=== PATIENT | female | born 1945 | race Caucasian/White ===

== ENCOUNTER 2016-07-02 10:42 | Emergency (ER) | payer MEDICARE ==
[2016-07-02 10:50] VITALS: BP 147/78
--- NOTE | 2016-07-02 11:16 | UC ---
Respiratory Complaint HPI - HPI Summary HPI Summary: ST starting 2 days ago, lots of dry coughing last night and today. Feels hoarse. Pt has COPD and gets "bronchitis every year that turns into pneumonia." - History of Current Complaint Chief Complaint: UCRespiratory Stated Complaint: RESPIRATORY Time Seen by Provider: 07/02/16 10:57 Hx Obtained From: Patient Hx Last Menstrual Period: n/a ?: No Onset/Duration: Gradual Onset, Lasting Days Timing: Constant Severity Initially: Mild Severity Currently: Mild Character: Cough: Nonproductive Aggravating Factors: Exertion, Deep Breaths, Recumbent Position Alleviating Factors: Upright Position Associated Signs And Symptoms: Positive: Chills - 2d ago. Negative: Wheezing, Hemoptysis, Dizziness, URI, Nasal Congestion - Allergies/Home Medications Allergies/Adverse Reactions: Allergies Allergy/AdvReac Type Severity Reaction Status Date / Time Lansoprazole [From Prevacid] Allergy Intermediate Hives Verified 07/02/16 10:50 Home Medications: Home Medications Apixaban* [Eliquis*] 1 tab PO DAILY 07/02/16 [History Confirmed 07/02/16] Atorvastatin* [Lipitor 40 MG*] 1 tab PO DAILY 07/02/16 [History Confirmed ] Sacubitril-Valsartan [Entresto 24-26 mg] 1 tab PO BID 07/02/16 [History Confirmed 07/02/16] amLODIPine TAB* [Norvasc 5 mg TAB*] 5 mg PO DAILY 07/02/16 [History Confirmed ] PMH/Surg Hx/FS Hx/Imm Hx Cardiovascular History Of: Reports: Hypertension Respiratory History Of: Reports: COPD Psychological History Of: Reports: Anxiety - Surgical History Surgical History: Yes Surgery Procedure, Year, and Place: D&C - Family History Known Family History: Positive: Hypertension - Social History Occupation: Retired Alcohol Use: None Substance Use Type: None Smoking Status (MU): Former Smoker Type: Cigarettes When Did the Patient Quit Smoking/Using Tobacco: 2004 Review of Systems Constitutional: Negative Skin: Negative Eyes: Negative ENT: Negative Respiratory: Shortness Of Breath, Cough Cardiovascular: Negative Gastrointestinal: Negative Genitourinary: Negative Motor: Negative Neurovascular: Negative Musculoskeletal: Negative Neurological: Negative Psychological: Negative All Other Systems Reviewed And Are Negative: Yes Physical Exam Triage Information Reviewed: Yes Appearance: Well-Appearing, No Pain Distress, Well-Nourished Vital Signs: Initial Vital Signs Temp 98.3 F 07/02/16 10:44 Pulse 90 07/02/16 10:44 Resp 16 07/02/16 10:44 BP 147/78 07/02/16 10:44 Pulse Ox 97 07/02/16 10:44 Vital Signs Reviewed: Yes Eye Exam: Normal Eyes: Positive: Conjunctiva Clear ENT: Positive: Hearing grossly normal, Pharynx normal, TMs normal - bilat post flush, Muffled/hoarse voice - hoarse, Other: - R cerumen impaction. Negative: Nasal congestion Dental Exam: Normal Neck exam: Normal Neck: Positive: Supple, Nontender, No Lymphadenopathy Respiratory Exam: Normal Respiratory: Positive: Chest non-tender, Lungs clear, Normal breath sounds, No respiratory distress, No accessory muscle use Cardiovascular Exam: Normal Cardiovascular: Positive: RRR, No Murmur Musculoskeletal Exam: Normal Neurological Exam: Normal Neurological: Positive: Alert Psychological Exam: Normal Skin Exam: Normal UC Diagnostic Evaluation - Laboratory O2 Sat by Pulse Oximetry: 97 Respiratory Course/Dx - Differential Dx/Diagnosis Provider Diagnoses: acute bronchitis. COPD. R cerumen impaction Discharge - Discharge Plan Condition: Stable Disposition: HOME Prescriptions: Azithromycin TAB* [Zithromax TAB (Z-NICK) 250 mg #6 tabs] 250 mg PO SEE INSTRUCTIONS #6 tab Guaifenesin-Codeine [Guaiatussin AC 100-10 mg/5Ml] 5 - 10 ml PO Q6H #120 ml MDD 40mL predniSONE TAB* [Deltasone TAB*] 50 mg PO DAILY #5 tab Patient Education Materials: Acute Bronchitis (ED) Referrals: Jaspreet Krueger MD [Primary Care Provider] - 1 Week Additional Instructions: As we discussed, your symptoms are likely all viral at this time. You can use the cough syrup as needed now, but wait to start the steroid and antibiotic. If you start to improve without it in the next couple days, you may not need to take them at all. But take the entire course of steroid and antibiotic at any time if you develop fever over 100F, sudden increase in sputum production, or if you have not felt some improvement within 3 days.
== END 2016-07-02 11:23 | disposition home or self-care (01) ==
LOC: UCCORT 10:42
DX: J44.1 Chronic obstructive pulmonary disease with (acute) exacerbation (principal); H61.21 Impacted cerumen, right ear; I10 Essential (primary) hypertension; F41.9 Anxiety disorder, unspecified; Z88.8 Allergy status to other drugs, medicaments and biological substances; Z87.891 Personal history of nicotine dependence
CPT/HCPCS: 99213; G0463

== ENCOUNTER 2017-02-05 14:36 | Emergency (ER) | payer MEDICARE ==
[2017-02-05 14:50] VITALS: BP 140/66
--- NOTE | 2017-02-05 15:19 | RAD ---
HISTORY: Left hand injury COMPARISONS: None VIEWS: 4, Frontal, lateral, and oblique views of the left hand FINDINGS: BONE DENSITY: There is diffuse osteopenia. BONES: There is no displaced fracture. JOINTS: There is osteoarthritis of the first CMC joint and of the second and third DIP joints. ALIGNMENT: There is no dislocation. SOFT TISSUES: Unremarkable. OTHER FINDINGS: None. IMPRESSION: OSTEOARTHRITIS. NO ACUTE OSSEOUS INJURY. IF SYMPTOMS PERSIST, RECOMMEND REPEAT IMAGING.
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
== END 2017-02-05 15:44 | disposition home or self-care (01) ==
LOC: UCCORT 14:36
DX: S60.222A Contusion of left hand, initial encounter (principal); I10 Essential (primary) hypertension; E78.5 Hyperlipidemia, unspecified; K21.9 Gastro-esophageal reflux disease without esophagitis; F32.9 Major depressive disorder, single episode, unspecified; Z87.891 Personal history of nicotine dependence; W18.09XA Striking against other object with subsequent fall, initial encounter; Y92.015 Private garage of single-family (private) house as the place of occurrence of the external cause
CPT/HCPCS: 99213; G0463

== ENCOUNTER 2018-12-24 10:57 | Emergency (ER) | payer MEDICARE ==
[2018-12-24 12:12] VITALS: BP 119/72
--- NOTE | 2018-12-24 13:26 | UC ---
Respiratory Complaint HPI - HPI Summary HPI Summary: Per receiving associate: "Has frequent cough since yesterday. Yesterday producing clear phlegm, nothing today. Pt prone to bronchitis and pneumonia. Also c/o sore throat." + COPD. gets bronchitis a lot. doesnt know what she is treated w/. she doesnt know if she has needed prednisone or not or what abx. has beeen seen herte for this. normally wears O2 2 LNC at rest. knows that she has romulo heart and a defibrillator. doesnt know why she is on eliquis but AFIb may soudn afmiliar to her. quit smoking 15 yrs ago. -review of prev visits, she has been given zpack and prednisone. she is on ihlares. - History of Current Complaint Chief Complaint: UCGeneralIllness Stated Complaint: CHEST CONGESTION, COUGH Time Seen by Provider: 12/24/18 12:59 Hx Last Menstrual Period: n/a Pain Intensity: 0 - Allergies/Home Medications Allergies/Adverse Reactions: Allergies Allergy/AdvReac Type Severity Reaction Status Date / Time lansoprazole [From Prevacid] Allergy Hives Verified 12/24/18 12:13 Home Medications: Home Medications Ubidecarenone [Coq10] 50 mg PO DAILY 12/24/18 [History Confirmed 12/24/18] busPIRone TAB* [Buspar TAB*] 5 mg PO BID 12/24/18 [History Confirmed 12/24/18] PMH/Surg Hx/FS Hx/Imm Hx - Surgical History Surgical History: Yes Surgery Procedure, Year, and Place: D&C - Family History Known Family History: Positive: Hypertension - Social History Alcohol Use: None Substance Use Type: None Smoking Status (MU): Former Smoker Type: Cigarettes When Did the Patient Quit Smoking/Using Tobacco: 2004 Review of Systems All Other Systems Reviewed And Are Negative: Yes Constitutional: Positive: Fatigue. Negative: Fever, Chills Skin: Positive: Negative. Negative: Rash Eyes: Positive: Negative ENT: Positive: Negative. Negative: Sore Throat, Ear Ache, Nasal Discharge, Sinus Congestion, Sinus Pain/Tenderness Respiratory: Positive: Cough. Negative: Shortness Of Breath Cardiovascular: Positive: Negative. Negative: Palpitations, Chest Pain Gastrointestinal: Positive: Negative Genitourinary: Positive: Negative Motor: Positive: Negative Neurovascular: Positive: Negative Musculoskeletal: Positive: Negative Neurological: Positive: Negative Psychological: Positive: Negative Is Patient Immunocompromised?: No Physical Exam Triage Information Reviewed: Yes Appearance: Well-Appearing, No Pain Distress, Well-Nourished Vital Signs: Initial Vital Signs Temp 98.1 F 12/24/18 12:07 Pulse 75 12/24/18 12:07 Resp 20 12/24/18 12:07 BP 119/72 12/24/18 12:07 Pulse Ox 100 12/24/18 12:07 Vital Signs Reviewed: Yes Eye Exam: Normal ENT Exam: Normal ENT: Positive: Pharynx normal, TMs normal, Uvula midline. Negative: Tonsillar swelling, Tonsillar exudate, Sinus tenderness Neck exam: Normal Neck: Positive: Supple, Nontender, No Lymphadenopathy Respiratory: Positive: Lungs clear, No respiratory distress, No accessory muscle use, Decreased breath sounds. Negative: Crackles, Rhonchi, Stridor, Wheezing Cardiovascular Exam: Normal Cardiovascular: Positive: Other: - irreg/irreg Abdominal Exam: Normal Abdomen Description: Positive: Nontender Musculoskeletal Exam: Normal Neurological Exam: Normal Psychological Exam: Normal Skin Exam: Normal Skin: Negative: Rashes Respiratory Course/Dx - Course Course Of Treatment: Bronchitis w/ O2 dependent COPD. will treat w/ zpack as she toleraets well. not in distress. - Differential Dx/Diagnosis Differential Diagnosis/HQI/PQRI: Asthma, Bronchitis, Exacerbation Of COPD, Lower Resp Infection Provider Diagnosis: COPD exacerbation Discharge ED - Sign-Out/Discharge Documenting (check all that apply): Patient Departure All imaging exams completed and their final reports reviewed: No Studies - Discharge Plan Condition: Stable Disposition: HOME Prescriptions: Azithromycin TAB* [Zithromax TAB (Z-NICK) 250 mg #6 tabs] 2 tab PO .TODAY, THEN 1 DAILY #1 nick Patient Education Materials: Acute Bronchitis (ED), COPD (Chronic Obstructive Pulmonary Disease) (ED) Referrals: Jaspreet Krueger MD [Primary Care Provider] - 5 Days Additional Instructions: Increase fluids and rest. You are given the antibiotic bc of history of COPD that increases your risk of pneumonia. Please go to the ER if your symptoms worsen. - Billing Disposition and Condition Condition: STABLE Disposition: Home
== END 2018-12-24 14:07 | disposition home or self-care (01) ==
LOC: UCCORT 10:57
DX: J44.1 Chronic obstructive pulmonary disease with (acute) exacerbation (principal); Z88.8 Allergy status to other drugs, medicaments and biological substances; Z87.891 Personal history of nicotine dependence; Z99.81 Dependence on supplemental oxygen
CPT/HCPCS: 99212; G0463